=== PATIENT | female | born 1950 | race Caucasian/White ===

== ENCOUNTER → 2023-01-17 | Outpatient (CLI) | payer MEDICARE, BC ==
[~2023-01-17] MED LIST: CEFP250; PROCODE120
[2023-01-17 19:00] LABS: Creatinine, Urine Random 70.6 mg/dL (27.00-270.00); Microalb/Creat Ratio UR, Rand 84.419 mg/g (0.000-30.000); Microalbumin, Random Urine 59.6 mg/L (0.000-20.000)
== END | disposition home or self-care (01) ==
LOC: LAB 10:30 → LAB SHORT 10:30
PROVIDERS: Physician Assistant
DX: E11.9 Type 2 diabetes mellitus without complications (principal)
CPT/HCPCS: 82043; 82570

== ENCOUNTER → 2024-03-19 | Outpatient (CLI) | payer MEDICARE, BC ==
[2024-03-19 17:42] LABS: Creatinine, Urine Random 49.2 mg/dL (27.00-270.00); Microalb/Creat Ratio UR, Rand 27.236 mg/g (0.000-30.000); Microalbumin, Random Urine 13.4 mg/L (0.000-20.000)
== END ==
LOC: LAB SHORT 15:17 → LAB 15:17
PROVIDERS: Physician Assistant
DX: E11.9 Type 2 diabetes mellitus without complications (principal)
CPT/HCPCS: 82043; 82570

== ENCOUNTER → 2024-08-26 | Outpatient (CLI) | payer MEDICARE, BC ==
[2024-08-26 21:00] LABS: Albumin, Blood 3.7 g/dL (3.4-5.0); Albumin/Globulin Ratio 1.1 (0.8-1.8); Bilirubin, Total 0.4 mg/dL (0.1-1.0); Calcium, Blood 10.5 mg/dL (8.5-10.1); Creatinine, Blood 1.06 mg/dL (0.40-1.00); Globulin, Blood 3.3 g/dL (2.2-4.0); Potassium, Blood 4.9 mmol/L (3.5-5.5); Uric Acid, Blood 6.7 mg/dL (2.6-6.0)
== END ==
LOC: LAB SHORT 11:00 → LAB 11:00
PROVIDERS: Physician Assistant
DX: E11.65 Type 2 diabetes mellitus with hyperglycemia (principal); E55.9 Vitamin D deficiency, unspecified; M10.9 Gout, unspecified
CPT/HCPCS: 80053; 82306; 83036; 84550

== ENCOUNTER → 2024-10-06 | Outpatient (CLI) | payer MEDICARE, BC ==
[2024-10-06 13:34] LABS: Bun/Creatinine Ratio 41.6 (12.0-20.0); Creatinine, Blood 0.91 mg/dL (0.40-1.00); Potassium, Blood 4.5 mmol/L (3.5-5.5); Uric Acid, Blood 4.5 mg/dL (2.6-6.0)
== END ==
LOC: LAB 09:10 → LAB SHORT 09:10
PROVIDERS: Physician Assistant
DX: M10.9 Gout, unspecified (principal); N28.9 Disorder of kidney and ureter, unspecified
CPT/HCPCS: 80048; 84550

== ENCOUNTER → 2025-04-14 | Outpatient (CLI) | payer MEDICARE, BC ==
[2025-04-14 13:01] LABS: Alanine Aminotransfer (ALT/SGP 25 U/L (12-78); Albumin, Blood 3.7 g/dL (3.4-5.0); Albumin/Globulin Ratio 1.1 (0.8-1.8); Anion Gap 10 mmol/L (3-11); Aspartate Aminotrans (AST/SGOT 14 U/L (12-37); Bilirubin, Total 0.3 mg/dL (0.1-1.0); Blood Urea Nitrogen 42 mg/dL (8-24); CHOL/HDL RATIO 3.9; CO2, Blood 26 mmol/L (21-32); Calcium, Blood 10.0 mg/dL (8.5-10.1); Chloride, Blood 106 mmol/L (98-108); Cholesterol 192 mg/dL (50-200); Creatinine, Blood 1.07 mg/dL (0.40-1.00); Globulin, Blood 3.4 g/dL (2.2-4.0); Glucose, Blood 178 mg/dL (70-99); HDL Cholesterol 49 mg/dL (>39); LDL/HDL RATIO 2.0; Low Density Lipoprotein Chol 99 mg/dL (0-110); Potassium, Blood 4.4 mmol/L (3.5-5.5); Sodium, Blood 138 mmol/L (136-145); Total Protein, Blood 7.1 g/dL (6.4-8.2); Triglycerides 222 mg/dL (30-160); Uric Acid, Blood 6.7 mg/dL (2.6-6.0); Very Low Density Lipoprot Chol 44 mg/dL (6-32)
== END ==
LOC: LAB 11:06 → LAB SHORT 11:06
PROVIDERS: Physician Assistant
DX: E11.65 Type 2 diabetes mellitus with hyperglycemia (principal); M10.9 Gout, unspecified
CPT/HCPCS: 80053; 80061; 83036; 84550

== ENCOUNTER → 2025-07-20 | Outpatient (CLI) | payer MEDICARE, BC ==
[2025-07-20 16:37] LABS: Anion Gap 10 mmol/L (3-11); Blood Urea Nitrogen 56 mg/dL (8-24); CHOL/HDL RATIO 2.9; CO2, Blood 25 mmol/L (21-32); Calcium, Blood 10.0 mg/dL (8.5-10.1); Chloride, Blood 102 mmol/L (98-108); Cholesterol 135 mg/dL (50-200); Creatinine, Blood 1.18 mg/dL (0.40-1.00); Glucose, Blood 120 mg/dL (70-99); HDL Cholesterol 47 mg/dL (>39); LDL/HDL RATIO 1.0; Low Density Lipoprotein Chol 48 mg/dL (0-110); Potassium, Blood 4.6 mmol/L (3.5-5.5); Sodium, Blood 132 mmol/L (136-145); Triglycerides 202 mg/dL (30-160); Uric Acid, Blood 5.4 mg/dL (2.6-6.0); Very Low Density Lipoprot Chol 40 mg/dL (6-32)
== END | disposition home or self-care (01) ==
LOC: LAB 14:52 → LAB SHORT 14:52
PROVIDERS: Physician Assistant
DX: E11.65 Type 2 diabetes mellitus with hyperglycemia (principal); E11.21 Type 2 diabetes mellitus with diabetic nephropathy; E78.5 Hyperlipidemia, unspecified; I10 Essential (primary) hypertension; M10.9 Gout, unspecified
CPT/HCPCS: 80048; 80061; 83036; 84550

== ENCOUNTER → 2025-08-03 | Outpatient (CLI) | payer MEDICARE, BC ==
[2025-08-03 20:45] LABS: Anion Gap 10.0 mmol/L (3-11); Blood Urea Nitrogen 68.0 mg/dL (8-24); CO2, Blood 24.0 mmol/L (21-32); Calcium, Blood 10.4 mg/dL (8.5-10.1); Chloride, Blood 103.0 mmol/L (98-108); Creatinine, Blood 1.39 mg/dL (0.40-1.00); Glucose, Blood 147.0 mg/dL (70-99); Potassium, Blood 4.4 mmol/L (3.5-5.5); Sodium, Blood 133.0 mmol/L (136-145)
== END ==
LOC: LAB SHORT 15:17 → LAB 15:17
PROVIDERS: Physician Assistant
DX: E11.65 Type 2 diabetes mellitus with hyperglycemia (principal); E11.21 Type 2 diabetes mellitus with diabetic nephropathy
CPT/HCPCS: 80048

== ENCOUNTER → 2025-08-04 | Outpatient (CLI) | payer MEDICARE, BC ==
[2025-08-04 19:09] LABS: Creatinine, Urine Random 43.7 mg/dL (27.00-270.00); Microalb/Creat Ratio UR, Rand 54.92 mg/g (0.000-30.000); Microalbumin, Random Urine 24.0 mg/L (0.000-20.000)
== END ==
LOC: LAB 17:34 → LAB SHORT 17:34
PROVIDERS: Physician Assistant
DX: E11.21 Type 2 diabetes mellitus with diabetic nephropathy (principal); E11.65 Type 2 diabetes mellitus with hyperglycemia
CPT/HCPCS: 82043; 82570